=== PATIENT | male | born 1960 | race Caucasian/White ===

== ENCOUNTER 2016-07-18 06:51 | Day surgery (SDC) | payer OTHER ==
[~2016-07-18] VITALS: Ht 177.8 cm; Wt 117.6 kg
[2016-07-18] MEDS ORDERED: PROPOFOL 40 ML ONE (07:25)
[2016-07-18] MEDS ORDERED: LIDOCAINE 100 MG SYRINGE ONE (07:25)
[2016-07-18 07:26] VITALS: Ht 177.8 cm; Wt 117.6 kg
[2016-07-18] MEDS ORDERED: ATEN50TA PO (07:37)
[2016-07-18] MEDS ORDERED: [UNRECOGNIZED DRUG - OTHER] (07:37)
[2016-07-18] MEDS ORDERED: PROPOFOL 20 ML ONE (08:03)
[2016-07-18 08:06] VITALS: BP 154/75; PULSE 53; RESP 16
[2016-07-18] MEDS ORDERED: GLYCOPYRROLATE 0.4 MG INJ ONE (08:06)
[2016-07-18 09:06] VITALS: BP 125/63; RESP 20
--- NOTE | 2016-07-18 09:58 | GILP ---
DATE OF PROCEDURE: 07/18/2016 PROCEDURE: Colonoscopy. PREOPERATIVE DIAGNOSIS: Patient presenting with history of occult gastrointestinal bleeding, rule o ut colorectal neoplasm, arteriovenous malformation, diverticulosis, etc. POSTOPERATIVE DIAGNOSES: 1. Occasional diverticula noted along the colon, they are small in size. They are not bleeding. 2. A 4 mm flat polyp was noted in the proximal transverse colon. This was biopsied. Appendiceal opening appeared normal. Diverticulum noted in the cecum. DESCRIPTION OF PROCEDURE: After informed written consent was obtained, the patient was asked to lie on the left lateral side. Intravenous anesthesia was given by anesthesiologist, Dr. Turner. When the patient became somnolent, the Olympus video colonoscope was introduced into the rectum and scope was advanced all the way to the cecum. Diverticulum noted in the cecum. Appendiceal opening was n oted. Ileocecal valve was noted. No ulcers, no tumor noted. Scope at this time was withdrawn. A 4 mm flat polyp was noted in the proximal transverse colon. This was removed with help of cold biops y forceps. No additional abnormalities detected. On the way out, retroflexion was performed. No i nternal hemorrhoids were noted. When the scope was withdrawn, and no external hemorrhoids were note d and the procedure was terminated. PLAN: Recommend wait for the pathology report and next colonoscopy depends upon the pathology of th e polyp. Dictated By: CON JAIMES/PATRICIA Conf#: [id number] DID#: [id number] CC: CON HAMMOND MD; IRAIS TAI MD;*[facility]*
--- NOTE | 2016-07-18 10:14 | GILP ---
DATE OF PROCEDURE: NAME OF PROCEDURE: Esophagogastroduodenoscopy. PREOPERATIVE DIAGNOSIS: Patient presenting with history of occult gastrointestinal bleeding. Patie nt also has a history of gastroesophageal reflux disease, history of gastric bypass, rule out anasto motic ulcer, rule out malignancy. POSTOPERATIVE DIAGNOSES: Status post gastric bypass. There appears to be Billroth II type of gastri c anastomosis, there were also sutures noted at the site of the anastomosis, biopsies were obtained. The loops of the anastomosis appeared normal. The remaining gastric pouch appeared normal. DESCRIPTION OF PROCEDURE: After the informed written consent was obtained, the patient was asked to lie on the left lateral side. The patient was given intravenous anesthesia by anesthesiologist, Dr Jeffrey Turner. When the patient became somnolent, the Olympus video upper endoscope was introduced into the oropharynx, then into the esophagus. Esophagus appeared to show evidence of a Schatzki's ring, but there is no stricture noted. Scope was advanced into the stomach. Stomach showed evidence of s tatus post gastric bypass and it appears like a Billroth II type of anastomosis noted, although ther e could be a variant of that kind of surgery. The sutures were noted at the site of anastomosis, al so there was ulcer noted with a small clot on the anastomotic area. Some nodularity noted at the si te of the anastomosis. Biopsies were obtained to rule out malignancy. The 2 loops of bypass appear ed to be normal with no mucosal abnormality. Endoscope at this time was withdrawn and no additional abnormalities detected and the procedure was terminated. PLAN: Recommend Carafate and wait for the pathology report. Dictated By: CON JAIMES/PATRICIA Conf#: [id number] DID#: [id number] CC: IRAIS TAI MD;*[facility]*
== END 2016-07-18 11:15 | disposition home or self-care (01) ==
LOC: GIL 06:51
PROVIDERS: ATTEND Internal Medicine Gastroenterology
DX: Z12.11 Encounter for screening for malignant neoplasm of colon (principal); D12.3 Benign neoplasm of transverse colon; K25.9 Gastric ulcer, unspecified as acute or chronic, without hemorrhage or perforation; K22.2 Esophageal obstruction; K57.90 Diverticulosis of intestine, part unspecified, without perforation or abscess without bleeding; I10 Essential (primary) hypertension
CPT/HCPCS: 43239; 45380; 88305; J2001; Z7610

== ENCOUNTER 2017-01-31 08:16 | Emergency (ER) | payer OTHER ==
[~2017-01-31] VITALS: Ht 180.3 cm; Wt 133.3 kg
[~2017-01-31 08:16] MED LIST: ATEN50TA PO; [UNRECOGNIZED DRUG - OTHER]
[2017-01-31 08:23] VITALS: Ht 180.3 cm; Wt 133.3 kg
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
--- NOTE | 2017-01-31 10:35 | RADRPT ---
PROCEDURE: CT Brain without. CLINICAL INDICATION: Altered level of consciousness TECHNIQUE: A CT of the brain was performed utilizing axial sections from the skull base through th e vertex without contrast. The scan was reviewed in soft tissue brain and high frequency resolution bone algorithm windows. Images were reviewed on a high-resolution PACS workstation. The exam CTDI = 44.33 mGy, and the DLP = 720.23 mGy-cm. One or more of the following dose reduction techniques w ere used: Automated exposure control, adjustment of the mA and / or kV according to patient size, o r use of iterative reconstruction technique. DICOM images are available. COMPARISON: None available FINDINGS: The ventricles are normal in size and midline in position. There is no intracranial hemorrhage, mid line shift, or mass effect. No abnormal extra-axial fluid collections are identified. The berry-whi te differentiation is well preserved. The basal cisterns are patent. The posterior fossa is unrema rkable. The visualized portions of the orbits are unremarkable. The paranasal sinuses and mastoid air cells are clear. No calvarial fracture or abnormality are identified. The soft tissues are unremarkable . IMPRESSION: Unremarkable CT of the brain. RPTAT: HH .Judith May MD, MD Date Time Electronically viewed and signed by .Judith May MD, on 01/31/2017 10:34 .G/
[2017-01-31 11:05] VITALS: BP 154/79; PULSE 88; RESP 16; TEMP 98.6
== END 2017-01-31 11:05 | disposition home or self-care (01) ==
LOC: E/R 08:16
DX: F10.929 Alcohol use, unspecified with intoxication, unspecified (principal); R40.2252 Coma scale, best verbal response, oriented, at arrival to emergency department; I10 Essential (primary) hypertension; R40.2142 Coma scale, eyes open, spontaneous, at arrival to emergency department; R40.2362 Coma scale, best motor response, obeys commands, at arrival to emergency department; R40.4 Transient alteration of awareness
CPT/HCPCS: 70450; 82962; Z7502

== ENCOUNTER 2017-06-13 03:23 | Emergency (ER) | END 2017-06-13 07:40 | disposition home or self-care (01) ==

== ENCOUNTER 2017-10-23 14:41 | Emergency (ER) | END 2017-10-23 17:32 | disposition home or self-care (01) ==

== ENCOUNTER 2018-05-21 01:27 | Emergency (ER) | payer OTHER ==
[~2018-05-21] VITALS: Ht 177.8 cm; Wt 101.5 kg
[~2018-05-21 01:27] MED LIST changes: -ATEN50TA PO; +CYCL10TA7 PO; +HYDR-3609 PO; +LOSA25TA12 PO; -[UNRECOGNIZED DRUG - OTHER]
[2018-05-21 01:42] VITALS: Ht 177.8 cm; Wt 101.5 kg
[2018-05-21] MEDS ORDERED: CLON-412 PO (04:51)
--- NOTE | 2018-05-21 04:55 | ERD ---
ER Documentation Chief Complaint Chief Complaint palpitations x 3 days HPI This is a 57-year-old male who is here with insomnia. The patient states that in the past 3 days he has slept 3 hours. He states that he has not been taking his Depakote for his bipolar and he thinks he is in a manic spell. He is not suicidal or homicidal. He said that he felt a bit anxious before coming into the night. He did not have any chest pain or shortness of breath or palpitations but felt anxiety. He currently does not. His main reason for being here is to get something for sleep. He says he takes Klonopin for sleep but he has been out of it as well. He has Depakote at home and he can take it when he gets home ROS All systems reviewed and are negative except as per history of present illness. Medications Home Meds Active Scripts Clonazepam* (Klonopin*) 1 Mg Tablet, 1 MG PO Q8H PRN for ANXIETY, #14 TAB Prov:SHAUNA SAUCEDO DO 05/21/18 Cyclobenzaprine Hcl* (Cyclobenzaprine Hcl*) 10 Mg Tablet, 10 MG PO TID PRN for .MUSCLE SPASMS, #30 TAB Prov:AMBROSIO ALFONSO MD 04/15/18 Hydrocodone/Acetaminophen (Hydrocodone-Acetamin 10-325 mg) 1 Each Tablet, 1 TAB PO Q6, #21 TAB Prov:AMBROSIO ALFONSO MD 04/15/18 Reported Medications Losartan Potassium* (Losartan Potassium*) 25 Mg Tablet, 25 MG PO DAILY, TAB 04/14/18 Allergies Allergies: Coded Allergies: No Known Allergies (Verified Allergy, Unknown, 05/21/18) PMhx/Soc History of Surgery: Yes (appy, hernia repair, gastric bypass) Anesthesia Reaction: No Hx Neurological Disorder: No Hx Respiratory Disorders: No Hx Cardiac Disorders: Yes (htn) Hx Psychiatric Problems: No Hx Miscellaneous Medical Probl: Yes (HTN, bipolar disorder, chronic neck pain ) Hx Alcohol Use: No Hx Substance Use: No Hx Tobacco Use: No FmHx Family History: No coronary disease Physical Exam Vitals Vital Signs Date Temp Pulse Resp B/P (MAP) Pulse Ox O2 O2 Flow FiO2 Time Delivery Rate 05/21/18 99.0 110 18 171/99 96 01:42 (123) Physical Exam Const: Well-developed, well-nourished Head: Atraumatic, normocephalic Eyes: Normal Conjunctiva, PERRLA, EOMI, normal sclera, no nystagmus ENT: Normal External Ears, Nose and Mouth, moist mucus membranes. Neck: Full range of motion. No meningismus, no lymphadenopathy. Resp: Clear to auscultation bilaterally, no wheezing, rhonchi, rales Cardio: Regular rate and rhythm, no murmurs, S1 S2 present Abd: Soft, non tender x 4, non distended. Normal bowel sounds, no guarding or rebound, no pulsitile abdominal masses or bruits Skin: No petechiae or rashes, no ecchymosis , no maculopapular rash Back: No midline or flank tenderness Ext: No cyanosis, or edema, FROM x 4, normal inspection, neurovascularly intact x 4 Neur: Awake and alert, STR 5/5 x 4, sensation intact x 4, no focal findings, cerebellum intact Psych: Normal Mood and Affect Results 24 hrs Current Medications Medications Dose Sig/Krystyna Start Time Status Last (Trade) Ordered Route PRN Stop Time Admin Dose Reason Admin Lorazepam 1 mg ONCE ONCE 05/21/18 (Ativan) IV 05:00 05/21/18 05:01 Procedures/MDM Patient was given Ativan 1 mg IV. Will discharge, Klonopin 1 mg p.o. as needed for insomnia. He will restart his Depakote Patient feels much better at this time, and vital signs are normal, symptoms hav e improved. I did give strict instructions to return to the ED if symptoms continue or worsen, patient will otherwise follow-up with primary care physician. Patient understood instructions and agreed to plan. Disclaimer: Inadvertent spelling and grammatical errors are likely due to EHR/dictation software use and do not reflect on the overall quality of patient care. Also, please note that the electronic time recorded on this note does not necessarily reflect the actual time of the patient encounter. Departure Diagnosis: Primary Impression: Insomnia Insomnia type: other insomnia Qualified Codes: G47.09 - Other insomnia Additional Impression: Anxiety Condition: Stable Patient Instructions: Treating Insomnia, Anxiety Reaction SHAUNA SAUCEDO DO May 21, 2018 04:55
[2018-05-21] MEDS ORDERED: LORAZEPAM 2 MG INJ IV ONE (05:00)
[2018-05-21 05:50] VITALS: BP 137/98; PULSE 88; RESP 18
== END 2018-05-21 05:50 | disposition home or self-care (01) ==
LOC: E/R 01:27
DX: G47.09 Other insomnia (principal); F41.9 Anxiety disorder, unspecified; I10 Essential (primary) hypertension
CPT/HCPCS: 96374; J2060

== ENCOUNTER 2018-08-17 19:11 | Emergency (ER) | payer OTHER ==
[~2018-08-17] VITALS: Ht 177.8 cm; Wt 106.2 kg
[~2018-08-17 19:11] MED LIST changes: +CLON-412 PO
[2018-08-17 19:18] VITALS: Ht 177.8 cm; Wt 106.2 kg
[2018-08-17] MEDS ORDERED: DILTIAZEM 30 MG TAB PO ONE (21:00)
[2018-08-17 23:30] VITALS: BP 172/97; PULSE 59; RESP 18
--- NOTE | 2018-08-18 09:45 | ERD ---
ER Documentation Chief Complaint Chief Complaint SWELLING, REDNESS PAIN AT SURGICAL SITE. SPINAL FUSION IN APR, REF BY PMD HPI 58 year old M with recent cervical fusion in 04/2018 is referred here by his PCP at [facility] for evaluation of cervical surgical site. Per reports, pt has been having progressively worsening redness and swelling near his surgical wound site on his right anterior neck. He was sent here for imaging to rule out issue under his skin or hardware. Pt denies any difficulty swallowing. Denies any fevers or chills. Denies any new trauma. Denies any numbness/tingling of upper extremities. Of note, he did not take his second HTN dose this evening yet. ROS All systems reviewed and are negative except as per history of present illness. Medications Home Meds Active Scripts Clonazepam* (Klonopin*) 1 Mg Tablet, 1 MG PO Q8H PRN for ANXIETY, #14 TAB Prov:SHAUNA SAUCEDO DO 05/21/18 Cyclobenzaprine Hcl* (Cyclobenzaprine Hcl*) 10 Mg Tablet, 10 MG PO TID PRN for . MUSCLE SPASMS, #30 TAB Prov:AMBROSIO ALFONSO MD 04/15/18 Hydrocodone/Acetaminophen (Hydrocodone-Acetamin 10-325 mg) 1 Each Tablet, 1 TAB PO Q6, #21 TAB Prov:AMBROSIO ALFONSO MD 04/15/18 Reported Medications Losartan Potassium* (Losartan Potassium*) 25 Mg Tablet, 25 MG PO DAILY, TAB 04/14/18 Allergies Allergies: Coded Allergies: No Known Allergies (Verified Allergy, Unknown, 05/21/18) PMhx/Soc History of Surgery: Yes (appy, hernia repair, gastric bypass, cervical fusion) Anesthesia Reaction: No Hx Neurological Disorder: No Hx Respiratory Disorders: No Hx Cardiac Disorders: Yes (htn) Hx Psychiatric Problems: No (anxiety) Hx Miscellaneous Medical Probl: Yes (HTN, bipolar disorder, chronic neck pain, spinal stenosis) Hx Alcohol Use: No Hx Substance Use: No Hx Tobacco Use: No Physical Exam Vitals Vital Signs Date Temp Pulse Resp B/P (MAP) Pulse Ox O2 O2 Flow FiO2 Time Delivery Rate 08/17/18 98.0 59 18 172/97 96 Room Air 23:30 (122) 08/17/18 97.5 81 20 192/112 97 19:18 (138) Physical Exam Const: No acute distress Head: Atraumatic Eyes: Normal Conjunctiva ENT: Normal External Ears, Nose and Mouth. Neck: Full range of motion. No meningismus. + approximately 1.5 cm papule with diffuse surrounding erythema, mildly TTP to right anterior neck. No fluctuance or induration. No streaking. Resp: Clear to auscultation bilaterally Cardio: Regular rate and rhythm, no murmurs Ext: No cyanosis, or edema Neur: Awake and alert Psych: Normal Mood and Affect Results 24 hrs Current Medications Medications Dose Sig/Krystyna Start Time Status Last (Trade) Ordered Route PRN Stop Time Admin Dose Reason Admin Diltiazem 30 mg ONCE ONCE 08/17/18 DC 08/17/18 HCl PO 21:00 20:52 (Cardizem) 08/17/18 21:01 Procedures/MDM LABS & DIAGNOSTIC IMAGING: PROCEDURE: CT SOFT TISSUE NECK WITHOUT CONTRAST CLINICAL INDICATION: 58-year-old male. Right neck swelling and erythema. FINDINGS: Visualized brain and orbits: No mass identified. Normal appearing globes and retro-orbital soft tissues. Soft tissues: Limited evaluation without IV contrast. Beam hardening artifact from dental metal. Normal appearing parotid and submandibular glands. The resolution agent spaces, left and right pterygopalatine fossae and fat filled parapharyngeal spaces are unremarkable. Normal appearing aerodigestive soft tissue structures. The precervical and retropharyngeal soft tissues are unremarkable. Normal appearing danger space. Beam hardening artifact from C5-C7 anterior fixation plate and material/spaces placed in the C5-6 and C6-7 disc spaces. No mass, fluid collection or abnormal soft tissue stranding identified within the soft tissues of the right neck. Lymph nodes: No pathologic adenopathy. Superior mediastinum: No mass or adenopathy. Visualized lung apices: No suspicious pulmonary nodules. Airway: Patent. Osseous structures: No lytic or blastic lesions. IMPRESSION: 1. Previous C5 - 79 ACDF with anterior fixation plate and spaces as described above. 2. No soft tissue mass, fluid collection or lymphadenopathy identified. 3. No reactive changes or soft tissue stranding identified within the right neck. MEDICAL DECISION MAKIN58 year old M with recent cervical spinal fusion presents referred here for imaging of his soft tissue neck. He is nontoxic appearing. He has no fever here. CT as above is negative for any acute mass or abscess. I doubt sepsis or deep space tissue infection. Sx are likely due to scar tissue. He was given to copies of his reports and told to follow up w/ his PCP whom he has an appointment with later this month. Of note, patient has elevated BP without e/o of hypertensive urgency or emergency. He was given a low dose HTN medication here with improvement. Strict return precautions are discussed. PRESCRIPTIONS: None SPECIALIST FOLLOW UP RECOMMENDED: None Patient has been advised to follow up with primary care in 1-2 days. Departure Diagnosis: Primary Impression: Neck pain Condition: Stable Patient Instructions: Wound Care, Neck Pain, No Trauma Additional Instructions: Take copies of your CT report to your primary care appointment in the next few weeks. Monitor for any worsening redness, fevers, discharge or any other complaints. Return here for any new or worsening symptoms. ACACIA MURPHY PA-C Aug 18, 2018 09:44
== END 2018-08-17 23:32 | disposition home or self-care (01) ==
LOC: FTE 19:11
DX: M54.2 Cervicalgia (principal); I10 Essential (primary) hypertension
CPT/HCPCS: 70490; Z7502; Z7610